=== PATIENT | female | born 2005 | race Caucasian/White ===

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

== ENCOUNTER → 2023-07-17 | Outpatient (CLI) | payer OTHER ==
[2023-07-17 18:20] LABS: Source, Urine Clean Catch
[2023-07-17 19:34] LABS: Bacteria Few /hpf; Red Blood Cells, Urine TNTC /hpf (0-2); Squamous Epithelial Cells Few /hpf (Few); White Blood Cells, Urine 25-50 /hpf (0-5)
[2023-07-17 19:35] LABS: Amorphous Mod (0-Heavy)
== END ==
LOC: LAB 18:17 → LAB SHORT 18:17
PROVIDERS: Physician Assistant Medical
DX: R31.9 Hematuria, unspecified (principal); R10.2 Pelvic and perineal pain
CPT/HCPCS: 81015; 87086